=== PATIENT | female | born 1990 ===

== ENCOUNTER → 2022-12-07 | Outpatient (REF) | LOC: M EMP 08:01 | PROVIDERS: ATTEND Family Medicine | DX: Z11.52 Encounter for screening for COVID-19 (principal) ==

== ENCOUNTER → 2023-06-14 | Outpatient (REF) ==
[2023-06-14 11:33] LABS: RSV AMPLIFICATION NEGATIVE (NEGATIVE)
== END ==
LOC: M EMP 10:02
PROVIDERS: ATTEND Family Medicine
DX: Z11.52 Encounter for screening for COVID-19 (principal)